=== PATIENT | female | born 1995 | race Caucasian/White ===

== ENCOUNTER 2018-05-07 13:22 | Emergency (ER) | payer OTHER ==
[~2018-05-07] VITALS: Ht 167.6 cm; Wt 78.9 kg
[2018-05-07 13:30] VITALS: BP 122/69; Ht 167.6 cm; Wt 78.9 kg
== END 2018-05-07 14:00 | disposition home or self-care (01) ==
LOC: ED 13:22
DX: R21 Rash and other nonspecific skin eruption (principal)